=== PATIENT | male | born 1995 | race Caucasian/White ===

== ENCOUNTER 2020-10-29 07:04 | Inpatient (IN) | payer SELFPAY ==
[~2020-10-29] VITALS: Ht 167.6 cm; Wt 56.2 kg
--- NOTE | 2020-10-29 07:09 | NUR ---
THIS IS A 24 YO M BIB [facility] FROM [facility] W/ C/O INTERMITTENT STERNAL CP SINCE YESTERDAY. PT WAS TRANSFERED D/T ELEVATED TROPONIN AND EKG CHANGES. BILAT AC 18G PIV [employer]. MEDS APPROX @0530 [employer] INCLUDE 324MG ASPIRIN, 30MG TORADOL AND 75MG ENOXAPARIN SUBQ. LABS [employer] INCULDE TROP 2.51 @0444, WBC 15.4, NEGATIVE UA. NEGATIVE CXR. NEGATIVE COVID RNA. PT REPORTS NO CURRENT CP. RESTING ON GURNEY W/ CALL LIGHT IN REACH AND SIDE RAILS UPX2. VSS, NADN. CONNECTED TO ALL MONITORING.
[2020-10-29] MEDS ORDERED: ASPIRIN 81 MG TABLET CHEW PO ONE (07:30)
--- NOTE | 2020-10-29 07:42 | NUR ---
LAB IN ROOM.
--- NOTE | 2020-10-29 07:46 | NUR ---
US AT BEDSIDE.
[2020-10-29 07:52] LABS: HCT (SEDRATE) 45.5 % (39.2-51.8)
--- NOTE | 2020-10-29 09:16 | NUR ---
PT RESTING ON GURNEY W/ CALL LIGHT IN REACH AND SIDE RAILS UPX2. RESP EVEN AND UNLABORED, NADN. AWAITING ADMIT.
--- NOTE | 2020-10-29 09:36 | NUR ---
REPORT GIVEN TO ANGELA LOPEZ. PT IS READY FOR TRANSPORT AT THIS TIME. JACKELIN MONAHAN.
[2020-10-29 10:03] LABS: BASOPHILS % (AUTO) 1 % (0-1); EOSINOPHILS % (AUTO) 0 % (1-7); LYMPHOCYTES % (AUTO) 11 % (22-44); MEAN CORPUSCULAR HEMOGLOBIN 34.6 pg (27.5-34.5); MEAN CORPUSCULAR HGB CONC 34.9 g/dL (33.2-36.2); MEAN PLATELET VOLUME 8.4 fL (7.4-10.4); MONOCYTES % (AUTO) 10 % (2-9); NEUTROPHILS % (AUTO) 78 % (42-75); PLATELET COUNT 215 x10^3/uL (130-400); RED BLOOD COUNT 4.48 x10^6/uL (4.38-5.82); RED CELL DISTRIBUTION WIDTH 12.9 % (9.4-14.8)
[2020-10-29 10:14] LABS: ALANINE AMINOTRANSFERASE 33 U/L (12-78); ALBUMIN 3.9 g/dL (3.4-5.0); ANION GAP 9 mmol/L (5-15); CHLORIDE 111 mmol/L (98-107)
[2020-10-29 10:17] LABS: INTERNATIONAL NORMALIZED RATIO 1.02 (0.93-1.1); PROTHROMBIN TIME 10.9 Seconds (9.6-11.5)
[2020-10-29 10:19] LABS: ALKALINE PHOSPHATASE 102 U/L (45-117); BILIRUBIN,TOTAL 0.7 mg/dL (0.2-1.0); CREATININE 0.98 mg/dL (0.7-1.3); TOTAL PROTEIN 7.2 g/dL (6.4-8.2)
[2020-10-29 10:23] VITALS: BP 130/86
[2020-10-29] MEDS: SODIUM CHLORIDE 0.9% 1,000 ML IV SCH ×2 (10:27→18:48)
[2020-10-29 10:32] LABS: MD SCAN
[2020-10-29 12:48] LABS: CHOL/HDL RATIO 1.8; LDL/HDL RATIO 0.6 (0.5-3.0)
[2020-10-29] MEDS ORDERED: LORazepam 2 MG/ML, 1ML IVPush ONE (14:30)
[2020-10-29] MEDS ORDERED: TICAGRELOR 90 MG TABLET ONE (15:56)
[2020-10-29] MEDS ORDERED: MIDAZOLAM 1 MG/ML, 5ML ONE (15:56)
[2020-10-29] MEDS ORDERED: VERAPAMIL 2.5 MG/ML, 2ML ONE (15:56)
[2020-10-29] MEDS ORDERED: FENTANYL PF 100 MCG/2ML ONE (15:56)
[2020-10-29] MEDS ORDERED: HEPARIN 1,000 UNITS/ML, 10ML ONE (15:57)
[2020-10-29] MEDS ORDERED: LIDOCAINE-MPF 1%, 5ML ONE (15:57)
[2020-10-29] MEDS ORDERED: BIVALIRUDIN 250 MG ONE (15:57)
[2020-10-29 16:50] VITALS: BP 124/74
[2020-10-29 19:20] VITALS: BP 110/68
[2020-10-30 01:13] VITALS: BP 128/70
[2020-10-30] MEDS: SODIUM CHLORIDE 0.9% 1,000 ML IV SCH ×2 (02:45→11:00)
[2020-10-30 04:38] LABS: ANION GAP 9 mmol/L (5-15); CALCIUM 8.4 mg/dL (8.5-10.1); CHLORIDE 111 mmol/L (98-107)
[2020-10-30 04:40] LABS: CREATININE 0.93 mg/dL (0.7-1.3)
[2020-10-30 10:00] VITALS: BP 136/79
== END 2020-10-30 12:39 | disposition home or self-care (01) | DRG 282 ==
LOC: ED 08:30 → EDIP 08:36 → SUATTDRO 08:47 → 5SO 09:38 → DCLOUNGE 10-30 12:28
PROVIDERS: ADMIT Hospitalist; ATTEND Hospitalist
PROC: 4A023N7 Measurement of Cardiac Sampling and Pressure, Left Heart, Percutaneous Approach (ICD-10-PCS; principal; 2020-10-29)
PROC: B2111ZZ Fluoroscopy of Multiple Coronary Arteries using Low Osmolar Contrast (ICD-10-PCS; 2020-10-29)
PROC: B2151ZZ Fluoroscopy of Left Heart using Low Osmolar Contrast (ICD-10-PCS; 2020-10-29)
DX: I21.A1 Myocardial infarction type 2 (principal); F17.210 Nicotine dependence, cigarettes, uncomplicated
CPT/HCPCS: 36415; 76937; 80048; 80053; 80061; 84443; 84484; 85025; 85610; 85651; 85730; 93005; 93306; 93458; 99156; 99285; C1769; C1894; G0378; J0583; J1644; J2250; J3010; J7030; Q9967